=== PATIENT | female | born 1980 | race Two or more races ===

== ENCOUNTER 2022-02-15 18:05 | Emergency (ER) | payer MEDICAID ==
[~2022-02-15] VITALS: Ht 162.6 cm; Wt 97.9 kg
[2022-02-15 18:21] VITALS: BP 136/70
[2022-02-15 19:44] LABS: Urine Bacteria NONE SEEN /hpf (None Seen); Urine Blood TRACE /uL (Negative); Urine Hyaline Cast FEW /lpf (0 - 2); Urine Specific Gravity 1.015 (1.001-1.035); Urine WBC 1 /hpf (0 - 5)
[2022-02-15 20:00] LABS: Basophils # (auto) 0 10 ^3/uL (0-0.2); Basophils % (auto) 0.2 % (0.0-2.0); Eosinophils # (auto) 0.1 10 ^3/uL (0-0.8); Hematocrit 30.5 % (36.0-46.0); Hemoglobin 10.1 g/dL (12.2-16.2); Lymphocytes # (auto) 1.6 10 ^3/uL (0.4-5.4); Lymphocytes % (auto) 23.3 % (10.0-50.0); Mean Corpuscular Hemoglobin 29.2 pg (28.0-32.0); Mean Corpuscular Volume 88.6 fL (80.0-100.0); Monocytes # (auto) 0.5 10 ^3/uL (0-1.3); Monocytes % (auto) 7.8 % (0.0-12.0); Neutrophils # (auto) 4.7 10 ^3/uL (1.6-8.6); Neutrophils % (auto) 66.7 % (37.0-80.0); Red Blood Cells 3.44 10^6/uL (4.0-5.20); Red Cell Distribution Width 15.9 % (11.8-14.3)
[2022-02-15 20:21] LABS: Potassium 4.4 mmol/L (3.5-5.1)
[2022-02-15 20:22] LABS: Calcium 8.5 mg/dL (8.5-10.1)
[2022-02-15] MEDS ORDERED: FUROSEMIDE 40 MG TAB PO ONE (20:30)
[2022-02-15 20:35] LABS: BUN/Creatinine Ratio 18.2; Bilirubin, Total 0.3 mg/dL (0.2-1.0); Total Protein 7.5 g/dL (6.4-8.2)
[2022-02-15] MEDS ORDERED: levoFLOXacin 500 MG TAB PO ONE (22:45)
[2022-02-15] MEDS ORDERED: LEVO500T31 PO (22:46)
== END 2022-02-15 23:38 | disposition home or self-care (01) ==
LOC: ER 18:05
DX: R60.0 Localized edema (principal); M54.9 Dorsalgia, unspecified; N39.0 Urinary tract infection, site not specified; N28.9 Disorder of kidney and ureter, unspecified; I10 Essential (primary) hypertension; E11.9 Type 2 diabetes mellitus without complications
CPT/HCPCS: 36415; 74176; 80053; 81001; 82150; 83690; 85025; 93970